=== PATIENT | male | born 1935 | race Caucasian/White ===

== ENCOUNTER 2018-05-02 22:39 | Emergency (ER) | payer MEDICARE, OTHER ==
[~2018-05-02] VITALS: Ht 165.1 cm; Wt 90.7 kg
[~2018-05-02 22:39] MED LIST: CHOLESTEROL PILL; FINA5 PO; Keflex500 MG PO; ONDA4 PO; TAMS.4ER PO
[2018-05-02 23:16] LABS: BASOPHILS ABSOLUTE AUTO 0.03 K/mm3 (0.00-0.23); BASOPHILS PERCENT AUTO 1 % (0-2); EOSINOPHILS ABSOLUTE AUTO 0.22 K/mm3 (0.00-0.68); EOSINOPHILS PERCENT AUTO 4 % (0-6); Hematocrit 33.7 % (37.0-53.0); Hemoglobin 11.6 g/dL (13.5-17.5); IMMATURE GRAN ABSOLUTE AUTO 0.01 K/mm3 (0.00-0.10); IMMATURE GRAN PERCENT AUTO 0 % (0-1); LYMPHOCYTES ABSOLUTE AUTO 1.04 K/mm3 (0.84-5.20); LYMPHOCYTES PERCENT AUTO 19 % (21-46); MONOCYTES ABSOLUTE AUTO 0.38 K/mm3 (0.16-1.47); MONOCYTES PERCENT AUTO 7 % (4-13); Mean Corpuscular HGB 39.6 pg (26.0-34.0); Mean Corpuscular HGB Conc 34.4 g/dL (31.5-36.5); Mean Corpuscular Volume 115 fL (80-100); Mean Platelet Volume 12.5 fL (9.1-12.4); NEUTROPHILS ABSOLUTE AUTO 3.74 K/mm3 (1.96-9.15); NEUTROPHILS PERCENT AUTO 69 % (41-73); Platelet Count 145 K/mm3 (150-400); RDW Coefficient Variation 15.1 % (11.7-14.2); RDW Standard Deviation 65.1 fL (35.1-46.3); Red Blood Cell Count 2.93 M/mm3 (4.30-5.90); White Blood Cell Count 5.42 K/mm3 (4.00-11.30)
[2018-05-02 23:34] LABS: Alanine Aminotransfer (ALT/SGP 49 U/L (12-78); Albumin, Blood 3.5 g/dL (3.4-5.0); Albumin/Globulin Ratio 1.1 (0.8-1.8); Alk Phos 59 U/L (50-136); Anion Gap 10 mmol/L (6-16); Aspartate Aminotrans (AST/SGOT 36 U/L (12-37); Bilirubin, Total 0.5 mg/dL (0.1-1.0); Blood Urea Nitrogen 19 mg/dL (8-24); CO2, Blood 24 mmol/L (21-32); Calcium, Blood 8.6 mg/dL (8.5-10.1); Chloride, Blood 107 mmol/L (98-108); Creatinine, Blood 0.95 mg/dL (0.60-1.20); Globulin, Blood 3.1 g/dL (2.2-4.0); Glomerular Filtration Rate >60 (60-); Glucose, Blood 162 mg/dL (70-99); Potassium, Blood 3.9 mmol/L (3.5-5.5); Sodium, Blood 141 mmol/L (136-145); Total Protein, Blood 6.6 g/dL (6.4-8.2)
[2018-05-03] MEDS ORDERED: BLOOD PRESSURE MED (00:20)
== END 2018-05-03 01:00 | disposition home or self-care (01) ==
LOC: ER 22:39
PROVIDERS: Emergency Medicine
DX: I10 Essential (primary) hypertension (principal); Z79.899 Other long term (current) drug therapy; Z87.891 Personal history of nicotine dependence
CPT/HCPCS: 36415; 80053; 85025; 93005; 93010; 99283-25

== ENCOUNTER 2018-05-20 05:15 | Emergency (ER) | payer MEDICARE, OTHER ==
[~2018-05-20] VITALS: Ht 172.7 cm; Wt 90.7 kg
[~2018-05-20 05:15] MED LIST changes: +BLOOD PRESSURE MED
[2018-05-20 05:38] LABS: BASOPHILS ABSOLUTE AUTO 0.04 K/mm3 (0.00-0.23); BASOPHILS PERCENT AUTO 1 % (0-2); EOSINOPHILS ABSOLUTE AUTO 0.34 K/mm3 (0.00-0.68); EOSINOPHILS PERCENT AUTO 6 % (0-6); Hematocrit 36.3 % (37.0-53.0); Hemoglobin 12.3 g/dL (13.5-17.5); IMMATURE GRAN ABSOLUTE AUTO 0.01 K/mm3 (0.00-0.10); IMMATURE GRAN PERCENT AUTO 0 % (0-1); LYMPHOCYTES ABSOLUTE AUTO 1.28 K/mm3 (0.84-5.20); LYMPHOCYTES PERCENT AUTO 23 % (21-46); MONOCYTES ABSOLUTE AUTO 0.42 K/mm3 (0.16-1.47); MONOCYTES PERCENT AUTO 8 % (4-13); Mean Corpuscular HGB 39.4 pg (26.0-34.0); Mean Corpuscular HGB Conc 33.9 g/dL (31.5-36.5); Mean Corpuscular Volume 116 fL (80-100); Mean Platelet Volume 12.3 fL (9.1-12.4); NEUTROPHILS PERCENT AUTO 63 % (41-73); Platelet Count 157 K/mm3 (150-400); RDW Coefficient Variation 14.2 % (11.7-14.2); RDW Standard Deviation 61.1 fL (35.1-46.3); Red Blood Cell Count 3.12 M/mm3 (4.30-5.90); White Blood Cell Count 5.59 K/mm3 (4.00-11.30)
[2018-05-20 05:56] LABS: Alanine Aminotransfer (ALT/SGP 64 U/L (12-78); Albumin, Blood 3.4 g/dL (3.4-5.0); Albumin/Globulin Ratio 1.1 (0.8-1.8); Alk Phos 69 U/L (50-136); Anion Gap 7 mmol/L (6-16); Aspartate Aminotrans (AST/SGOT 37 U/L (12-37); Bilirubin, Total 0.7 mg/dL (0.1-1.0); Blood Urea Nitrogen 20 mg/dL (8-24); Bun/Creatinine Ratio 21.6 (12.0-20.0); CO2, Blood 25 mmol/L (21-32); Calcium, Blood 8.4 mg/dL (8.5-10.1); Chloride, Blood 110 mmol/L (98-108); Creatinine, Blood 0.92 mg/dL (0.60-1.20); Globulin, Blood 3.1 g/dL (2.2-4.0); Glomerular Filtration Rate >60 (60-); Glucose, Blood 119 mg/dL (70-99); Potassium, Blood 4.3 mmol/L (3.5-5.5); Sodium, Blood 142 mmol/L (136-145); Total Protein, Blood 6.5 g/dL (6.4-8.2); Troponin I <0.015 ng/mL (0.000-0.040)
[2018-05-20 06:25] LABS: Source, Urine Clean Catch
[2018-05-20 06:30] LABS: Bilirubin, Urine Neg (Neg); Blood, Urine Neg (Neg); Glucose Qualitative, Urine Neg (Neg); Ketones, Urine Neg (Neg); Leukocyte Esterase, Urine Neg (Neg); Nitrite, Urine Neg (Neg); Protein, Urine Neg (Neg); Urobilinogen, Urine NORM (Normal)
[2018-05-20 06:31] LABS: Appearance, Urine Clear (Clear); Color, Urine Yellow (P-Yellow)
== END 2018-05-20 07:39 | disposition home or self-care (01) ==
LOC: ER 05:15
PROVIDERS: Emergency Medicine
DX: R07.89 Other chest pain (principal); R53.1 Weakness; Z79.899 Other long term (current) drug therapy; Z87.891 Personal history of nicotine dependence; Z86.73 Personal history of transient ischemic attack (TIA), and cerebral infarction without residual deficits
CPT/HCPCS: 36415; 71046; 80053; 81003; 84484; 85025; 93005; 93010; 96374; 99284-25

== ENCOUNTER → 2018-10-05 | Outpatient (CLI) | payer MEDICARE, OTHER ==
[~2018-10-05] MED LIST changes: +DOCU100 PO
[2018-10-05 13:10] LABS: Source, Urine Clean Catch
[2018-10-05 15:04] LABS: Bilirubin, Urine Neg (Neg); Blood, Urine Neg (Neg); Glucose Qualitative, Urine Neg (Neg); Ketones, Urine Neg (Neg); Leukocyte Esterase, Urine Neg (Neg); Nitrite, Urine Neg (Neg); Protein, Urine Neg (Neg); Specific Gravity, Urine 1.015 (1.003-1.022); Urobilinogen, Urine NORM (Normal)
[2018-10-05 15:12] LABS: Appearance, Urine Clear (Clear); Color, Urine Yellow (P-Yellow)
== END ==
LOC: LAB SHORT 13:09 → LAB 13:09
PROVIDERS: Internal Medicine
DX: R30.0 Dysuria (principal)
CPT/HCPCS: 81003

== ENCOUNTER 2018-11-05 09:48 | Inpatient (IN) | payer MEDICARE, OTHER ==
[~2018-11-05] VITALS: Ht 165.1 cm; Wt 91.0 kg
[2018-11-05 10:23] LABS: BASOPHILS ABSOLUTE AUTO 0.03 K/mm3 (0.00-0.23); BASOPHILS PERCENT AUTO 0 % (0-2); EOSINOPHILS ABSOLUTE AUTO 0.05 K/mm3 (0.00-0.68); EOSINOPHILS PERCENT AUTO 1 % (0-6); Hematocrit 40.5 % (37.0-53.0); Hemoglobin 13.6 g/dL (13.5-17.5); IMMATURE GRAN ABSOLUTE AUTO 0.02 K/mm3 (0.00-0.10); IMMATURE GRAN PERCENT AUTO 0 % (0-1); LYMPHOCYTES ABSOLUTE AUTO 1.74 K/mm3 (0.84-5.20); LYMPHOCYTES PERCENT AUTO 23 % (21-46); MONOCYTES ABSOLUTE AUTO 0.64 K/mm3 (0.16-1.47); MONOCYTES PERCENT AUTO 8 % (4-13); Mean Corpuscular HGB 40.1 pg (26.0-34.0); Mean Corpuscular HGB Conc 33.6 g/dL (31.5-36.5); Mean Corpuscular Volume 120 fL (80-100); Mean Platelet Volume 12.7 fL (9.1-12.4); NEUTROPHILS ABSOLUTE AUTO 5.27 K/mm3 (1.96-9.15); NEUTROPHILS PERCENT AUTO 68 % (41-73); Platelet Count 143 K/mm3 (150-400); RDW Coefficient Variation 14.6 % (11.7-14.2); Red Blood Cell Count 3.39 M/mm3 (4.30-5.90); White Blood Cell Count 7.75 K/mm3 (4.00-11.30)
[2018-11-05 10:35] LABS: Calcium, Ionized (POC) 0.95 mmol/L (1.10-1.46); Chloride (POC) 103 mmol/L (98-108); Creatinine (POC) 1.2 mg/dL (0.8-1.3); Glucose (ISTAT POC) 178 mg/dL (70-99); Hemoglobin (POC) 12.6 g/dL (13.5-17.5); Potassium (POC) 5.8 mmol/L (3.5-5.5); Sodium (POC) 137 mmol/L (135-148); Total CO2 (POC) 23 mmol/L (21-32)
[2018-11-05 10:35] LABS: Calcium, Ionized (POC) 0.88 mmol/L (1.10-1.46); Chloride (POC) 106 mmol/L (98-108); Creatinine (POC) 1.1 mg/dL (0.8-1.3); Glucose (ISTAT POC) 200 mg/dL (70-99); Hemoglobin (POC) 12.6 g/dL (13.5-17.5); Potassium (POC) >9.0 mmol/L (3.5-5.5); Sodium (POC) 132 mmol/L (135-148); Total CO2 (POC) 21 mmol/L (21-32)
[2018-11-05 10:56] LABS: Alanine Aminotransfer (ALT/SGP 103 U/L (12-78); Albumin, Blood 3.4 g/dL (3.4-5.0); Albumin/Globulin Ratio 1.1 (0.8-1.8); Alk Phos 66 U/L (50-136); Anion Gap 12 mmol/L (6-16); Aspartate Aminotrans (AST/SGOT 235 U/L (12-37); Bilirubin, Total 1.1 mg/dL (0.1-1.0); Blood Urea Nitrogen 25 mg/dL (8-24); Bun/Creatinine Ratio 22.1 (12.0-20.0); CO2, Blood 21 mmol/L (21-32); Calcium, Blood 8.2 mg/dL (8.5-10.1); Chloride, Blood 106 mmol/L (98-108); Creatinine, Blood 1.13 mg/dL (0.60-1.20); Globulin, Blood 3.2 g/dL (2.2-4.0); Glomerular Filtration Rate >60 (60-); Glucose, Blood 220 mg/dL (70-99); Sodium, Blood 139 mmol/L (136-145); Total Protein, Blood 6.6 g/dL (6.4-8.2)
[2018-11-05 11:05] LABS: Creatine Kinase MB 31.2 ng/mL (0.0-3.6)
[2018-11-05 11:16] LABS: Creatine Kinase MB Index 0.9 (0.0-4.0)
[2018-11-05 12:52] LABS: International Normalized Ratio 1.03; Prothrombin Time Results 10.9 Sec (9.7-11.5)
[2018-11-05] MEDS ORDERED: CLOP75 PO (13:24)
[2018-11-05] MEDS ORDERED: Lisinopril2.5 MG PO (13:25)
[2018-11-05] MEDS ORDERED: FURO20 PO (13:27)
[2018-11-05] MEDS ORDERED: Micro-K10 MEQ PO (13:30)
[2018-11-05] MEDS ORDERED: Fish Oil Conc1000 MG PO (13:31)
[2018-11-05] MEDS ORDERED: B Complex #11 EACH PO (13:32)
[2018-11-05] MEDS ORDERED: D3-20002000 UNIT PO (13:36)
[2018-11-05] MEDS ORDERED: NITR.4SL SL (13:38)
[2018-11-05] MEDS ORDERED: HYDR1TAB94 PO (13:39)
[2018-11-05 13:42] LABS: International Normalized Ratio 1.02; Prothrombin Time Results 10.8 Sec (9.7-11.5)
--- NOTE | 2018-11-05 13:57 | NUR ---
Initial Visit: Palliative Care Consult for AD/POLST. Pt is A&Ox4 and denies pain at this time. Pt reports 3/7 anxiety and describes is as an emotional state. Pt denies dyspnea. Family present during visit including: Pt's daughter, son, and son in law. Pt reports he is of [place] mariaelena and lives at [facility]. He states that he needs assistance with bathing, dressing, and requires the use of a walker when ambulating. Engaged in therapeutic conversation regarding AD/POLST. Pt reports that he does not want to kept alive on machines and does not want CPR performed. Daughter has Pt's completed POLST which shows Full Treatment. Educated Pt and family about Pt's wishes and current POLST. Suggested another conversation may be in order regarding Pt's current wishes and completing a new POLST. Family is agreeable and left new POLST with family. Pt reports that he would like something for his anxiety. laboratory veterinarian team arrives before visit is completed. Pt and family report no other concerns at this time. Plan: Will discuss with Pt's nurse regarding medication to manage his anxiety once he is assigned a room. Educated Pt on distraction techniques to help managed anxiety. Will remain available for symptom management and obtain copy of new POLST once completed.
--- NOTE | 2018-11-05 15:30 | NUR ---
ADMIT TO ICU, ROOM 14, VIA BED, FROM [facility]. PATIENT ARRIVED TO ER WITH ELEVATED TROPONIN/NSTEMI; TO CATH. LAB FOR ANGIOGRAM; NO PCI INDICATED BUT WAS IN 3RD DEGREE HEART BLOCK UPON ARRIVAL TO [facility] AND SUDDENLY WENT ASYSTOLE; CODE BLUE CALLED. REQUIRED CPR AND 2 DEFIBS OF 100 JOULES EACH. SEE HEART CENTER/CODE NOTES. CURRENTLY PATIENT ALERT/ORIENTED; MOUTH DRY AND DIFFICULT SPEAKING REAL CLEARLY; TO REMAIN NPO. HAS TENPORARY (TRANS VENOUS PACER) PACEMAKER/VIA R FEMORAL; TO GO LATER FOR PERM. PACER (THIS EVENING). TR BAND SITE CLEAR; 10CC OF AIR IN PLACE; ARMBOARD IN PLACE. HAND WARM AND GOOD MOVEMENT OF FINGERS; BIOX. ON INDEX FINGER AND GOOD WAVEFORM AND READING (HIGH 90'S); ON 2L/NC. LEVOPHED GTT AT 2MCG/MIN; RN DC'D D/T SBP 120' TO 130'S. IVF OF NS INFUSING. 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 DAUGHTER PRESENT AND HELPED ANSWER NURSING HX QUESTIONS AND VERY LOVING AND ATTENTIVE TO PATIENT. PATIENT HAS 2 SONS WHO WILL ARRIVE (1 FROM [place] AND 1 FROM [place], [place]). PATIENTS' GRAND-DAUGHTER IS AN RN AT THIS FACILITY.
--- NOTE | 2018-11-05 15:45 | NUR ---
TENP. PACER AND SITE INTACT WELL TR BAND; NO ACUTE CHANGES. ATTEMPTING TO VOID LAYING FLAT; RN TILTED WHOLE BED TO HELP (PATIENT WITH PROSTATE ISSUES AND HAS DIFF. VOIDING WHEN STANDING). WATER RUNNING IN SINK AND PATIENT GIVEN PRIVACY, ETC; STILL UNABLE TO VOID.
--- NOTE | 2018-11-05 16:00 | NUR ---
CONT. UNABLE TO VOID. RN PLACED DEPENDS ON TOP OF PATIENT (NOT TO ROLL OR ALLOW MOVEMENT OR RLE); URINAL PLACED AND PATIENT GIVEN PRIVACY.
--- NOTE | 2018-11-05 16:15 | NUR ---
UNABLE TO VOID AND FEELING UNCOMFORTABLE. R GROIN SITE INTACT AND PACER IN PLACE (RATE SET AT 60 WITH MAMPS 10/5). TR BAND SITE UNCHANGED; NO S/SX' OF HEMATOMA.
--- NOTE | 2018-11-05 16:45 | NUR ---
FAMILY ARRIVED FROM OUT OF AREA AND VISITING WITH PATIENT; PATIENT REMAINS FOCUSED ON VOIDING. R GROIN SITE/PACER INTACT. TR BAND SITE UNCHANGED; VSS.
--- NOTE | 2018-11-05 17:15 | NUR ---
UMANZOR CATH. PLACED; PATIENT TO BE LEAVING, SHORTLY, FOR HEART CENTER TO HAVE PERM. PACER PLACED. #16 COUDE' PLACED BY 2ND YEAR CERTIFIED OPHTHALMIC TECHNICIAN AND OBSERVED BY RN; NO ISSUES; PATIENT RETURNED OVER 600-800CC OF COREY URINE INTO DRAINAGE BAG. WILL REMOVE UMANZOR ONCE PATIENT ABLE TO CHANGE POSITION AND GET OOB.
--- NOTE | 2018-11-05 17:26 | NUR ---
TO HEART CENTER WITH MONITOR. FAMILY FOLLOWING; NO ACUTE ISSUES AT THIS TIME.
[2018-11-05 17:38] LABS: Source, Urine Clean Catch
[2018-11-05 17:44] LABS: Bilirubin, Urine Neg (Neg); Blood, Urine 1+ (Neg); Color, Urine Yellow (P-Yellow); Glucose Qualitative, Urine Neg (Neg); Ketones, Urine 1+ (Neg); Leukocyte Esterase, Urine Neg (Neg); Nitrite, Urine Neg (Neg); Protein, Urine 2+ (Neg); Specific Gravity, Urine 1.015 (1.003-1.022); Urobilinogen, Urine NORM (Normal)
[2018-11-05 18:00] LABS: Appearance, Urine Clear (Clear); Granular Casts 0-2 /lpf (0)
[2018-11-05 18:01] LABS: Bacteria Few /hpf; Red Blood Cells, Urine 0-2 /hpf (0-2); Squamous Epithelial Cells Rare /hpf (Few); White Blood Cells, Urine 0-2 /hpf (0-5)
--- NOTE | 2018-11-05 21:56 | NUR ---
DR. JOHNSON COMMUNICATION DR. JOHNSON CALLED IN FOR PATIENT UPDATE AND TO ENSURE PLACEMENT OF ICE, 2 LB WEIGHT AND IMMOBILIZER. UPDATE PROVIDED PER REQUEST. NO NEW ORDERS.
--- NOTE | 2018-11-05 22:00 | NUR ---
RETURN TO ICU PT RETURNED TO ICU APPROX 2129. BEDSIDE REPORT RECEIVED FROM HEART CENTER RN'S. PT DROWSY, BUT ORIENTED WITH EXCEPTION OF YEAR AND FOLLOWING COMMANDS. PT HAS SPEECH THAT IS SLURRED AND DIFFICULT TO UNDERSTAND, BUT CLEARS SOMEWHAT WHEN PROVIDED WITH WATER FOR DRY MOUTH. OTHERWISE, NEURO ASSESSMENT NORMAL WITH EXCEPTION OF RIGHT SIDED WEAKNESS RESIDUAL FROM PREVIOUS STROKE. FACIAL MOVEMENTS SYMMETRICAL. VITALS STABLE. SEE ASSESSMENT. PT DENIES PAIN/DISCOMFORT. ICE PACKS, IMMOBILIZER AND 2 LB WEIGHT APPLIED TO SURGICAL SITE PER MD ORDERS. RIGHT RADIAL ACCESS SITE HAS TRANSRADIAL BAND AND IMMOBILIZER IN PLACE. SLOWLY DEFLATING BAND. FAMILY IN WAITING ROOM UPDATED AND BROUGHT INTO ROOM. PT'S SON ROOMING IN OVERNIGHT.
[2018-11-06 04:16] LABS: BASOPHILS ABSOLUTE AUTO 0.01 K/mm3 (0.00-0.23); BASOPHILS PERCENT AUTO 0 % (0-2); EOSINOPHILS ABSOLUTE AUTO 0.08 K/mm3 (0.00-0.68); EOSINOPHILS PERCENT AUTO 1 % (0-6); Hematocrit 34.1 % (37.0-53.0); Hemoglobin 11.3 g/dL (13.5-17.5); IMMATURE GRAN ABSOLUTE AUTO 0.02 K/mm3 (0.00-0.10); IMMATURE GRAN PERCENT AUTO 0 % (0-1); LYMPHOCYTES ABSOLUTE AUTO 0.97 K/mm3 (0.84-5.20); LYMPHOCYTES PERCENT AUTO 14 % (21-46); MONOCYTES ABSOLUTE AUTO 0.69 K/mm3 (0.16-1.47); MONOCYTES PERCENT AUTO 10 % (4-13); Mean Corpuscular HGB 39.2 pg (26.0-34.0); Mean Corpuscular HGB Conc 33.1 g/dL (31.5-36.5); Mean Corpuscular Volume 118 fL (80-100); Mean Platelet Volume 12.8 fL (9.1-12.4); NEUTROPHILS ABSOLUTE AUTO 5.14 K/mm3 (1.96-9.15); NEUTROPHILS PERCENT AUTO 74 % (41-73); Platelet Count 122 K/mm3 (150-400); RDW Coefficient Variation 14.6 % (11.7-14.2); RDW Standard Deviation 64.1 fL (35.1-46.3); Red Blood Cell Count 2.88 M/mm3 (4.30-5.90); White Blood Cell Count 6.91 K/mm3 (4.00-11.30)
[2018-11-06 04:38] LABS: Alanine Aminotransfer (ALT/SGP 84 U/L (12-78); Albumin, Blood 2.8 g/dL (3.4-5.0); Albumin/Globulin Ratio 1.1 (0.8-1.8); Alk Phos 52 U/L (50-136); Anion Gap 7 mmol/L (6-16); Aspartate Aminotrans (AST/SGOT 149 U/L (12-37); Bilirubin, Total 0.7 mg/dL (0.1-1.0); Blood Urea Nitrogen 24 mg/dL (8-24); Bun/Creatinine Ratio 23.5 (12.0-20.0); CO2, Blood 24 mmol/L (21-32); Calcium, Blood 7.5 mg/dL (8.5-10.1); Chloride, Blood 110 mmol/L (98-108); Creatinine, Blood 1.02 mg/dL (0.60-1.20); Globulin, Blood 2.6 g/dL (2.2-4.0); Glomerular Filtration Rate >60 (60-); Glucose, Blood 108 mg/dL (70-99); Potassium, Blood 4.3 mmol/L (3.5-5.5); Sodium, Blood 141 mmol/L (136-145); Total Protein, Blood 5.4 g/dL (6.4-8.2)
--- NOTE | 2018-11-06 04:43 | NUR ---
PROVIDER COMMUNICATION PT COMPLAINING OF CHRONIC COUGH AND SORE THROAT. UPDATED MD PER PATIENT REQUEST. COUGH DROPS ORDERED.
--- NOTE | 2018-11-06 04:44 | NUR ---
RADIAL ACCESS SITE TRANSRADIAL BAND DEFLATED GRADUALLY THROUGHOUT NIGHT WITH NO COMPLICATIONS. BAND REMOVED, TEGADERM APPLIED. IMMOBILIZER REMAINS IN PLACE. PT EDUCATED THROUGHOUT NIGHT ON RESTRICTIONS.
--- NOTE | 2018-11-06 05:13 | NUR ---
NEURO REASSESSMENT THROUGHOUT NIGHT, NEURO STATUS FREQUENTLY REASSESSED. PT NOTED TO BE LESS DROWSY, MORE TALKATIVE AND EASIER TO UNDERSTAND NIGHT HAS PROGRESSED. OTHERWISE, NEURO ASSESSMENT UNCHANGED. DISCUSSED PREVIOUS NEURO STATUS WITH PT'S SON AND HE STATES, "HE IS NORMALLY PRETTY SHARP AND HIS SPEECH IS MORE CLEAR THAN THIS BUT JUST SEEMS DROWSY FROM THE MEDS." PT TOLERATING ORAL INTAKE WELL. PT EXPRESSING NEEDS.
--- NOTE | 2018-11-06 06:25 | NUR ---
NEURO REASSESSMENT PT'S WORDS CONTINUED TO BE SOMEWHAT SLURRED, SPECIFICALLY AT THE END OF HIS SENTENCES. ENCOURAGED PT TO ARTICULATE WORDS FOR ACCURATE NEURO ASSESSMENT AND PT ABLE TO ARTICULATE SENTENCES CLEARLY. WHEN NOT FOCUSING ON WORDS THEY BECOME SLURRED AGAIN. DISCUSSED WITH PT AND SON AND BOTH ARE AGREEABLE IT'S RELATED TO FATIGUE. PT SMILING, JOKING THROUGHOUT THE MORNING.
--- NOTE | 2018-11-06 06:45 | NUR ---
DR. ELIZABETH JOHNSON AT BEDSIDE TO UPDATE PT AND FAMILY. PER DR. JOHNSON, PLAN IS TO CONTINUE CURRENT PLAN WITH INITIATION OF LASIX AND PLAN FOR DISCHARGE INPATIENT REHAB FACILITY IN [place].
--- NOTE | 2018-11-06 07:15 | NUR ---
AM ASSESSMENT: PT IS ALERT AND ORIENTED X3. PT'S SON IS AT THE BEDSIDE AND HELPFUL WITH CARE. PT'S DENIES PAIN, BUT REPORTS TENDERNESS IN LT CW, R/T PACER PLACEMENT. PT HAS 2# WT AND ICE OVER PACER SITE, WELL A PRESSURE DRSG THAT IS C/D/I. UNABLE TO VISUALIZE PACER SITE. PT ABLE TO MOVE AROUND IN BED. EDUCATED ON ACTIVITY RESTRICIONS WITH NEW PACER PLACED. PT'S SPEECH IS THICK. ANSWERS QUESTIONS SLOWLY BUT APPROPRIATELY. LUNGS ARE CLEAR BUT DIMINISHED T/O BILATERALLY. SATS HIGH 90% RANGE ON 3L 02, DECREASED TO 2L 02 PER N/C PT DOES NOT NORMALLY WEAR 02 OUTSIDE OF HOSPITAL. WILL ATTEMPT TO WEAN OFF TODAY. HR REGULAR, SR 60'S RANGE. ABD SOFT/ROUND/MILD TENDERNESS TO LLQ TO LIGHT PALPATION. BT'S HYPOACTIVE X4 QAUDS. NO NAUSEA AT THIS TIME. PT EAGER TO EAT BREAKFAST. UMANZOR CATH DRAINING CLEAR, YELLOW URINE TO GRAVITY. RT RADIAL/RT GROIN SITE STABLE, OPSITE IN PLACE IS C/D/I, NO OOZING/HEMATOMA.
--- NOTE | 2018-11-06 07:31 | NUR ---
SUMMARY VITALS STABLE THROUGHOUT NIGHT. ICE, WEIGHT AND IMMOBILIZER IN PLACE TO PACER SITE THROUGHOUT NIGHT AND PT TOLERATING WELL. PT NOTED TO REQUIRE NO PACING THROUGHOUT NIGHT. REPORT TO LESLIE LOMAS.
--- NOTE | 2018-11-06 08:09 | NUR ---
CONSULTED WITH DR JOHNSON: PT TO HAVE PACER INTERROGATED TODAY. CALLED [facility] TO CONFIRM THIS WILL OCCUR. [facility] REPORTS THE REP WILL COME INTERROGATE TODAY AND SHE WOULD TOUCH BASE WITH THEM. PT CAN CHANGE TO PCU STATUS ONCE INTERROGATION IS DONE. SEE NEW MEDICATIONS ORDERS. ENCOURAGE PT TO DRINK MORE FLUIDS.
--- NOTE | 2018-11-06 08:17 | NUR ---
CALLED AN OBTAINED F/U APPT FOR POST PACEMAKER PLACEMENT.
--- NOTE | 2018-11-06 12:00 | NUR ---
PT UPDATE: PT HAS MULTIPLE FAMILY MEMBERS AT THE BEDSIDE WITH CONTINUAL PT BASED CARE QUESTIONS. PALLATIVE CARE RN TO MEET W/FAMILY TODAY FOR ADVANCED CARE PLANNING. YEHUDA, SUPERVISOR TRA[employer] IN[employer] [facility]/DISCHARGE PLANNING WORKING W/ FAMILY TO ASSIST IN FINDING SNF PLACEMENT IN [place] FOR REHAB POST PACER PLACEMENT. PT REMAINS FORGETFUL AND NEEDS CONSTANT REMINDERS OF WHAT HE IS PHYSICALLY ALLOWED TO DO. PT THOUGHT HE WAS STILL SITTING ON BEDPAN 10MINUTES AFTER HE HAD BEEN TAKEN OFF OF IT AND REPOSITIONED FOR COMFORT. RE-ORIENTED PT. PT TEARFUL AT THIS TIME.
--- NOTE | 2018-11-06 14:22 | NUR ---
PALLATIVE CARE RN AT THE BEDSIDE WITH PT AND PT'S FAMILY READDRESSING CODE STATUS.
--- NOTE | 2018-11-06 15:31 | NUR ---
Mr. Arvizu was alone in room at time of visit. Family had just left room. within moments of visit, he began to weep. He spoke about his mariaelena and his love of God and family. Mr. Arvizu appears quite weak, but responded well to affirmation of mariaelena and prayer. He told me his tearfulness was deep gratitude. He admits to being worried about family. I will remain available.
--- NOTE | 2018-11-06 18:01 | NUR ---
SHIFT SUMMARY: PT REMAINS ALERT AND ORIENTED X3. PT IS SLIGHTLY [place] AND VERY FORGETFUL. PT NEEDED CONTINUOUS RE-INFORCEMENT RE: ACTIVITY RESTRICTIONS R/T PACEMAKER PLACEMENT. TAUGHT MULTIPLE FAMLILY MEMBERS AT THE BEDSIDE THAT HAVE BEEN PRESENT T/O THE SHIFT. LUNGS ARE CLEAR BUT DIMINISHED T/O BILATERALLY. HR REGULAR, SR 80-90'S RANGE. TRACE ANKLE EDEMA PRESENT. PT RESTARTED ON TORSEMIDE. D5NS @ 200ML/HR, AWAITING NEW ORDERS FROM DR BENNETT.
--- NOTE | 2018-11-06 18:54 | NUR ---
PT ATTEMPTED BEDPAN: PT GIVEN DOCUSATE AND MILK OF MAG THIS SHIFT. PT HAS BEEN PLACED ON THE BEDPAN SEVERAL TIMES. MINIMAL FLATUS AND SMEARS EACH TIME. REMINDED PT THAT HE WAS GIVEN MOM, HE WAS REQUESTING IT AGAIN. DID OFFER TO GIVE SUPPOSITORY OR ENEMA IF NEEDED. PT'S FAMILY REPORTS PT HAD A LARGE BM YESTERDAY AM AND TENDS TO "OBSESS" OVER HIS BOWELS. PT DID, HOWEVER, HAVE A RECENT IMPACTION PER FAMILY.
--- NOTE | 2018-11-06 19:32 | NUR ---
REPORTED OFF TO LESLIE HORTON WHOM WILL ASSUME CARE OF THIS PT.
--- NOTE | 2018-11-06 23:26 | NUR ---
CARE ASSUMED REPORT RECEIVED, CARE ASSUMED AT 1900. FAMILY AT BEDSIDE AND INVOLVED IN CARE. VITALS STABLE. SEE ASSESSMENT.
--- NOTE | 2018-11-07 02:00 | NUR ---
NEURO STATUS CHANGES APPROX 0015 PT HEARD MOANING AUDIBLE FROM HALLWAY. ASSESSMENT REVEALED A RIGHT FACIAL DROOP AND PT UNABLE TO TALK. RIGHT PUPIL SMALLER THAN LEFT. PT UNABLE TO MOVE RIGHT ARM, SEVERE WEAKNESS OF LEFT ARM. VITALS STABLE. DR. WIGGINS NOTIFIED AND TO BEDSIDE FOR ASSESSMENT. PT TO RADIOLOGY ACCOMPANIED BY RN'S FOR CT OF HEAD AND CTA OF HEAD AND NECK. FAMILY AT BEDSIDE AND UPDATED BY DR. WIGGINS. SINCE THEN, PT HAS HAD IMPROVED STRENGTH IN RIGHT SIDE BUT DEFICIT STILL NOTED. RIGHT FACIAL DROOP CONTINUES. PT NOW SPEAKING BUT WORDS ARE SLURRED AND DIFFICULT TO UNDERSAND. AWAITING CTA AND CT RESULTS.
--- NOTE | 2018-11-07 02:41 | NUR ---
DR. WIGGINS COMMUNICATION CT RESULTS RECEIVED. DR. WIGGINS PROVIDED WITH RESULTS. DR. WIGGINS TO BEDSIDE FOR REASSESSMENT. PLAN PER DR. WIGGINS IS TO COMMUNICATE WITH NEUROLOGY FOR RECOMMENDATIONS. LESLIE KATE ASSISTING DR. WIGGINS TO CONTACT NEUROLOGIST.
--- NOTE | 2018-11-07 03:43 | NUR ---
UPDATE DR. WIGGINS IN COMMUNICATION WITH [facility] NEUROLOGIST. NEUROLOGIST TO REVIEW CT AND CTA RESULTS. FAMILY UPDATED. NEURO STATUS IMPROVING. SEE REPEAT NEURO ASSESSMENTS.
[2018-11-07 04:13] LABS: Anion Gap 8 mmol/L (6-16); Blood Urea Nitrogen 25 mg/dL (8-24); CO2, Blood 25 mmol/L (21-32); Calcium, Blood 7.5 mg/dL (8.5-10.1); Chloride, Blood 105 mmol/L (98-108); Creatinine, Blood 0.93 mg/dL (0.60-1.20); Glomerular Filtration Rate >60 (60-); Glucose, Blood 119 mg/dL (70-99); Magnesium, Blood 2.4 mg/dL (1.6-2.4); Potassium, Blood 3.9 mmol/L (3.5-5.5); Sodium, Blood 138 mmol/L (136-145)
--- NOTE | 2018-11-07 06:25 | NUR ---
SUMMARY SINCE PREVIOUS NOTE, NEURO STATUS CONTINUES TO IMPROVE. PT INCREASINGLY USING BOTH ARMS FOR CALL LIGHT AND TO REPOSITION SHEETS. SPEECH CONTINUES TO BE SLURRED BUT PT IS TALKING MORE AND PROVIDING MORE COMPLETE SENTENCES. CONTINUES TO BE DIFFICULT TO UNDERSTAND. SEE COMPLETE NEURO ASSESSMENTS. NEUROLOGY RECOMMENDATION PER DR. WIGGINS NOTES. PT REPEATEDLY REQUESTING WATER AND FOOD, EDUCATED ON CHANGES AND NEED FOR SPEECH EVAL. PT FORGETFUL, REQUIRING FREQUENT REMINDERS. PT'S SON UPDATED AND QUESTIONS ANSWERED. PT'S SON INVOLVED IN CARE AND PROVIDING SUPPORT TO PATIENT. VITALS STABLE THROUGHOUT NIGHT. COZAAR WAS NOT ADMINISTERED BP WAS CONSISTENTLY BORDERLINE. WILL DISCUSS WITH DAY SHIFT RN FOR DISCUSSION DURING CARDIOLOGY ROUNDING.
--- NOTE | 2018-11-07 07:52 | NUR ---
Recieved report from Betsey NELSON. Patient laying in bed with HOB at 30 degrees. Patient is on RA and sats 96% and shows no signs o distress. He has slight right facial droop, equal fabric inspector with moderate strength, bilateral LE feet push strength and weaker pull back. He lifts arm up equally. Speech very garbled and does not look like he understands all communication. He has sotelo draining to gravity yellow urine. He has BERTHA pacer site dressing opsite C/D/I and R Groin cath site Opsite C/D/I, niether site have any redness or swelling. He is not paced and is SR 80's, systolic 100's. Son at bedside and states far from baseline.
--- NOTE | 2018-11-07 11:33 | NUR ---
Patient has had PT and OT in room and have talked with discharge planning. Speech eval has also been by and wrote orders for diet. He was able to take whole pills in apple sauce and tolerated well, no thin liquids. No real change in neuro assessment and family at bed side. Right TR band site, Right groin site and left pacer site all C/D/I and no swelling or redness. VSS
--- NOTE | 2018-11-07 13:30 | NUR ---
Family remains at bedside. Place on bedpan without success. He was helped with eat and ate about 30% of lunch. No changes in Neuro assessment from earlier. Dr Donahue has been by to talk with family and Dr Parks by and just wants to be notified prior to transfer to [facility].
--- NOTE | 2018-11-07 15:00 | NUR ---
Patient has been resting. he is getting bed bath and linen change. Small stool smear. 1300ml yellow urine from sotelo. VSS
--- NOTE | 2018-11-07 17:00 | NUR ---
patient resting with son at bedside I helped him eat vanilla pudding and her tolerated well, he stated he will not want dinner as it is too much. VSS.
--- NOTE | 2018-11-07 18:30 | NUR ---
Gave report to Med RN and he will transfer to floor when available.. Called hospitalist and got order for home Aphagen for 1 drop per eye BID. All family in room and will follow patient up to room. Needed to start new IV in LFA and removed LH IV.
--- NOTE | 2018-11-07 19:25 | NUR ---
report on transfer from ICU from LESLIE Nolan on PT full code with NSTMI and cva with pacemaker placed. Will be on bedrest and Tele. Await transfer. Orders reviewed.
--- NOTE | 2018-11-08 00:29 | NUR ---
pt TRANSFERRED FROM ICU AND HAS TELE MONITOR NSR. ON ROOM AIR AND ABLE TO COMMUNICATE. SPEECH CAN BE GARBLED. KARISSA BARGER ROOMING IN
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
--- NOTE | 2018-11-08 06:51 | NUR ---
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 PT had NSTEMI and pacer applied via cardiac cath and a permanent pacer. Later he had a CVA and resulting swallow deficit and speech deficit. not out of bed. LT UE in sling to discourage use after pacer placement. HOB up and PT on room air. Son at bedside and supportive. VSS. Jarquin patent.
[2018-11-08 08:57] LABS: BASOPHILS ABSOLUTE AUTO 0.02 K/mm3 (0.00-0.23); BASOPHILS PERCENT AUTO 0 % (0-2); EOSINOPHILS ABSOLUTE AUTO 0.08 K/mm3 (0.00-0.68); EOSINOPHILS PERCENT AUTO 1 % (0-6); Hematocrit 35.6 % (37.0-53.0); IMMATURE GRAN ABSOLUTE AUTO 0.02 K/mm3 (0.00-0.10); IMMATURE GRAN PERCENT AUTO 0 % (0-1); LYMPHOCYTES ABSOLUTE AUTO 0.67 K/mm3 (0.84-5.20); LYMPHOCYTES PERCENT AUTO 10 % (21-46); MONOCYTES ABSOLUTE AUTO 0.45 K/mm3 (0.16-1.47); MONOCYTES PERCENT AUTO 7 % (4-13); Mean Corpuscular HGB Conc 33.7 g/dL (31.5-36.5); Mean Corpuscular Volume 116 fL (80-100); NEUTROPHILS ABSOLUTE AUTO 5.33 K/mm3 (1.96-9.15); NEUTROPHILS PERCENT AUTO 81 % (41-73); Platelet Count 120 K/mm3 (150-400); RDW Coefficient Variation 14.4 % (11.7-14.2); RDW Standard Deviation 61.8 fL (35.1-46.3); Red Blood Cell Count 3.08 M/mm3 (4.30-5.90); White Blood Cell Count 6.57 K/mm3 (4.00-11.30)
[2018-11-08 09:17] LABS: Anion Gap 7 mmol/L (6-16); Blood Urea Nitrogen 22 mg/dL (8-24); Bun/Creatinine Ratio 27.5 (12.0-20.0); CO2, Blood 27 mmol/L (21-32); Calcium, Blood 7.8 mg/dL (8.5-10.1); Chloride, Blood 105 mmol/L (98-108); Glomerular Filtration Rate >60 (60-); Glucose, Blood 152 mg/dL (70-99); Potassium, Blood 3.8 mmol/L (3.5-5.5); Sodium, Blood 139 mmol/L (136-145)
--- NOTE | 2018-11-08 15:16 | NUR ---
Pt visit this afternoon. Family present during visit. Pt sitting in a recliner chair and appears to be in good spirits as evidenced by his continual smile. When engaging in conversation with Pt, his speech is slurred and occasionaly difficult to understand. Pt states that he is ready to be discharged from hospital and ready to start his rehabilitation process. Family member expresses concerns that he has been in the same position for a couple of hours now. Offered to reposition Pt with a pillow and he accepts. Placed pillow under Pt's right right hip and buttocks to help aleviate pressure. Pt's reports new position is comfortable. Pt and family report no concerns at this time. Will remain available.
--- NOTE | 2018-11-08 18:14 | NUR ---
SHIFT SUMMARY CHEY DENIED PAIN EXCEPT SLIGHT CRAMPING IN HIS RLE AT THE BEGINNING OF THE SHIFT. TELE DC'D (SHOWING NSR WITH BBB) THIS SHIFT PER DR ALMENDAREZ. UMANZOR ALSO DC'D AT 1715, AWAITING FIRST VOID. NEURO CHECKS PERFORMED, NO NEW DEFICITS. PT UP TO CHAIR WITH AO2 WITH PT AND OT. REQUIRING LIFT TO GET BACK TO BED PER THEIR RECS. DOES EXHIBIT S/S OF ASPIRATION UNLESS FULLY UPRIGHT FOR EATING AND FOR 20-30 MINUTES AFTER. ATE MEALS WELL WITH ONLY ASSISTANCE OPENING CONTAINERS AND MEAL SET UP. MEDS CRUSHED IN APPLESAUCE. LOTS OF FAMILY IN ROOM. R GROIN AND R WRIST ACCESS SITES C/D/I. SLING MAINTAINED ON L ARM AND REMINDED PT TO NOT USE. R ARM ABLE TO BE USED FULLY PER DR RIZZO. ACCESS SITES AND PACEMAKER SITE C/D/I. WCTM AWAITING SNF PLACEMENT.
--- NOTE | 2018-11-09 04:08 | NUR ---
SHIFT SUMMARY PATIENT HAD NO ACUTE CHANGES OBSERVED THIS SHIFT. AXO TO SELF AND FAMILY WITH GARBLED SPEECH. BEDFAST. UP IN CHAIR AT SHIFT CHANGE AND HEAD OF CHAIR UP FOR PO MEDICATION CRUSHED IN APPLE SAUCE. SLING ON LEFT ARM TO REMIND PATIENT NOT TO ELEVATED ARM ABOVE SHOULDER WITH RECENT PLACEMENT OF PACE MAKER. VSS/AFEBRILE. DENIES PAIN, SOB, AND N/V. FAMILY PRESENT T/O SHIFT. CALL LIGHT IN REACH. BED IN LOWEST POSITION. WILL CONTINUE TO MONITOR UNTIL DAY SHIFT NURSE ASSUMES CARE.
--- NOTE | 2018-11-09 13:34 | NUR ---
RETENTION/CATHETER PLACEMENT PT UNABLE TO VOID THIS SHIFT. BLADDER SCAN REVEALED [id number]. DR. PAL CALLED & INFORMED. ORDERED AN INDWELLING CATHETER. CATHERTER 18 [address] PLACED. PT TOLERATED WELL.
[2018-11-09 13:51] LABS: Source, Urine Catheter
[2018-11-09 13:54] LABS: Bilirubin, Urine Neg (Neg); Blood, Urine 1+ (Neg); Glucose Qualitative, Urine Neg (Neg); Ketones, Urine Neg (Neg); Leukocyte Esterase, Urine Neg (Neg); Nitrite, Urine Neg (Neg); Protein, Urine 2+ (Neg); Urobilinogen, Urine NORM (Normal); pH, Urine 6.5 (5.0-8.0)
[2018-11-09 14:08] LABS: Appearance, Urine Clear (Clear); Color, Urine Amber (P-Yellow)
[2018-11-09 14:10] LABS: Bacteria Not Seen /hpf; Red Blood Cells, Urine 0-2 /hpf (0-2); Squamous Epithelial Cells Rare /hpf (Few); White Blood Cells, Urine Rare /hpf (0-5)
[2018-11-09] MEDS ORDERED: TORSE20 PO (14:33)
[2018-11-09] MEDS ORDERED: Acetaminophen325 M1 PO (14:36)
[2018-11-09] MEDS ORDERED: CEPACOL SORE T1 EACH MM (14:36)
[2018-11-09] MEDS ORDERED: ASPI81CH PO (14:36)
[2018-11-09] MEDS ORDERED: ATOR40TA PO (14:36)
[2018-11-09] MEDS ORDERED: Alphagan P5 ML BOTHEYES (14:37)
[2018-11-09] MEDS ORDERED: Keflex500 MG PO (14:37)
[2018-11-09] MEDS ORDERED: METO25ER PO (14:38)
--- NOTE | 2018-11-09 16:58 | NUR ---
REPORT CALLED TO EDITH RODRIGUEZ REPORT CALLED TO EDITH RODRIGUEZ NURSE AT [phone]. PT AWAITING PICKUP.
--- NOTE | 2018-11-09 18:15 | NUR ---
PT DISCHARGED PT DISCHARGED IN STABLE CONDITION. VSS. PT TRANSPORTED VIA WHEELCHAIR VAN TO [facility]. REPORT CALLED TO NURSE AT [facility] & ALL QUESTIONS ANSWERED. PT DAUGHTER MEETING PT AT [facility] & HAS PT BELONGINGS.
== END 2018-11-09 18:15 | DRG 242 ==
LOC: ER 09:48 → ERHOLD 12:03 → ICUW 12:03 → ERHOLD 14:55 → ICUW 15:09 → MEDS 11-07 19:59
PROVIDERS: Emergency Medicine; Internal Medicine; Internal Medicine Cardiovascular Disease; ADMIT Internal Medicine
PROC: B2111ZZ Fluoroscopy of Multiple Coronary Arteries using Low Osmolar Contrast (ICD-10-PCS; principal; 2018-11-05)
PROC: 4A023N7 Measurement of Cardiac Sampling and Pressure, Left Heart, Percutaneous Approach (ICD-10-PCS; 2018-11-05)
PROC: 5A1223Z Performance of Cardiac Pacing, Continuous (ICD-10-PCS; 2018-11-05)
PROC: 0JH604Z Insertion of Pacemaker, Single Chamber into Chest Subcutaneous Tissue and Fascia, Open Approach (ICD-10-PCS; 2018-11-05)
PROC: 02HK3JZ Insertion of Pacemaker Lead into Right Ventricle, Percutaneous Approach (ICD-10-PCS; 2018-11-05)
DX: I21.4 Non-ST elevation (NSTEMI) myocardial infarction (principal); I63.9 Cerebral infarction, unspecified; I46.9 Cardiac arrest, cause unspecified; I44.2 Atrioventricular block, complete; N40.0 Benign prostatic hyperplasia without lower urinary tract symptoms; J84.10 Pulmonary fibrosis, unspecified; Z87.891 Personal history of nicotine dependence; R26.89 Other abnormalities of gait and mobility; I10 Essential (primary) hypertension; R73.9 Hyperglycemia, unspecified; Z66 Do not resuscitate; G62.9 Polyneuropathy, unspecified; R00.1 Bradycardia, unspecified; Z79.82 Long term (current) use of aspirin; E78.5 Hyperlipidemia, unspecified; K76.0 Fatty (change of) liver, not elsewhere classified; R53.1 Weakness
CPT/HCPCS: 33207; 36415; 51702; 70450; 70496; 70498; 71045; 71046; 76705; 80047; 80048; 80053; 81001; 82550; 82553; 83036; 83735; 83880; 84484; 85014; 85025; 85610; 85730; 86850; 86900; 86901; 92526; 92610; 93005; 93010; 93279; 93458; 97163; 97167; 97530; 97535; 99152; 99153; 99285-25; C1769; C1786; C1894; C1898; J0282; J0690; J1644; J2250; J2405; J3010; J7030; J7040; Q9967